=== PATIENT | male | born 1975 | race Caucasian/White ===

== ENCOUNTER 2018-07-05 18:34 | Emergency (ER) | payer MEDICAID ==
[2018-07-05] MEDS ORDERED: Albuterol-Ipratrop 3 mg / 0.5 (3 ml) UD ONE (19:37)
[2018-07-05] MEDS ORDERED: Albuterol-Ipratrop 3 mg / 0.5 (3 ml) UD INH STA ×2 (19:49→21:29)
--- NOTE | 2018-07-05 20:54 | ED PDOC ---
HPI: SOB/CHF/COPD Time Seen by Provider: 07/05/18 19:00 Chief Complaint (Nursing): Shortness Of Breath Chief Complaint (Provider): Shortness of Breath History Per: Patient History/Exam Limitations: no limitations Onset/Duration Of Symptoms: Other (x1 week) Current Symptoms Are (Timing): Still Present Additional Complaint(s): 43 year old male, with a past medical history of asthma, presents to the ED complaining of being of short of breath for 1 week. Patient is also complaining of coughing but denies fever. He states he has an appointment with a doctor at the clinic for this . PMD: none provided Past Medical History Reviewed: Historical Data, Nursing Documentation, Vital Signs Vital Signs: Last Vital Signs Temp 98.4 F 07/05/18 18:43 Pulse 88 07/05/18 18:43 Resp 18 07/05/18 19:20 BP 140/83 07/05/18 18:43 Pulse Ox 96 07/05/18 19:20 - Medical History PMH: Asthma - Surgical History Other surgeries: Arm procedure - Family History Family History: States: Unknown Family Hx - Social History Current smoker - smoking cessation education provided: No Alcohol: None Drugs: Denies - Home Medications Home Medications: Ambulatory Orders Medication Instructions Recorded DiphenhydrAMINE [Benadryl] 25 mg PO TID PRN #12 cap 07/06/16 Ibuprofen [Motrin] 600 mg PO TID PRN #30 tab 07/06/16 Metoclopramide [Reglan] 10 mg PO Q8 #12 tab 07/06/16 RX: traMADol [Ultram] 50 mg PO Q8 PRN #12 tab 07/06/16 Triamcinolone Acetonide [Nasacort 1 spray NS DAILY #1 unit 07/06/16 Allergy 24Hr] RX: Albuterol HFA [Ventolin HFA 90 1 - 2 puff IH Q4H PRN #1 bottle 07/05/18 mcg/actuation (8 g)] - Allergies Allergies/Adverse Reactions: Allergies Allergy/AdvReac Type Severity Reaction Status Date / Time No Known Allergies Allergy Verified 07/05/18 18:43 Wells Criteria for PE - Wells Criteria for Pulmonary Embolism Clinical Signs and Symptoms of DVT: No P.E is #1 Diagnosis, or Equally Likely: No Heart Rate >100: No Immobilization at least 3 days;Surgery previous 4 weeks: No Previous, objectively diagnosed PE or DVT: No Hemoptysis: No Malignancy w/treatment within 6 months, or palliative: No Total Score: 0 Review of Systems ROS Statement: Except As Marked, All Systems Reviewed And Found Negative Constitutional: Negative for: Fever Respiratory: Positive for: Cough, Shortness of Breath Physical Exam - Reviewed Nursing Documentation Reviewed: Yes Vital Signs Reviewed: Yes - Physical Exam Appears: Positive for: Non-toxic, No Acute Distress (pt speaking in full s entences, no tachypnea) Head Exam: Positive for: ATRAUMATIC, NORMOCEPHALIC Skin: Positive for: Normal Color, Warm, Dry Eye Exam: Positive for: Normal appearance ENT: Positive for: Normal ENT Inspection Neck: Positive for: Normal, Painless ROM Cardiovascular/Chest: Positive for: Regular Rate, Rhythm. Negative for: Murmur Respiratory: Positive for: Wheezing, Other (good air entry) Gastrointestinal/Abdominal: Positive for: Soft. Negative for: Tenderness Extremity: Positive for: Normal ROM Neurologic/Psych: Positive for: Alert, Oriented. Negative for: Motor/Sensory Deficits - ECG O2 Sat by Pulse Oximetry: 96 (RA) Pulse Ox Interpretation: Normal Medical Decision Making Medical Decision Making: Initial Impression: shortness of breath- likely asthma exacerbation rule out pneumonia Initial Plan: Chest X-ray Albuterol 3mL INH Prednisone 50mg PO Peak flow Patient's x-ray presents no abnormalities and presents no infiltrate. pt reevaluated after meds, feels much better 02 sat 100 percent RA pt wheezing imrpoved stable for dc and outpt follow up Upon provider reevaluation patient is feeling better, is medically stable, and requires no further treatment in the ED at this time. Patient will be discharged home. Counseling was provided and all questions were answered regarding diagnosis and need for follow up with PMD. There is agreement to discharge plan. Return if symptoms persist or worsen. Scribe Attestation: Documented by Jose Russell acting as a scribe for Jf Baxter MD. Provider Scribe Attestation: All medical record entries made by the Scribe were at my direction and personally dictated by me. I have reviewed the chart and agree that the record accurately reflects my personal performance of the history, physical exam, medical decision making, and the department course for this patient. I have also personally directed, reviewed, and agree with the discharge instructions and disposition. Disposition - Clinical Impression Clinical Impression: Asthma attack - Patient ED Disposition Is Patient to be Admitted: No Counseled Patient/Family Regarding: Studies Performed, Diagnosis, Need For Followup - Disposition Disposition: Routine/Home Disposition Time: 21:55 Condition: IMPROVED Additional Instructions: follow up with your doctor on return to the ED with any worsening or concerning symptoms Prescriptions: RX: Albuterol HFA [Ventolin HFA 90 mcg/actuation (8 g)] 1 - 2 puff IH Q4H PRN #1 bottle PRN Reason: Wheezing Instructions: Asthma, Adult (DC) Forms: [facility] (Malay)
[2018-07-05 22:14] VITALS: BP 129/74; PULSE 84; RESP 19; TEMP 98.3
--- NOTE | 2018-07-06 09:08 | RAD ---
Date of service: 07/05/2018 HISTORY: wheezing COMPARISON: 04/25/2013 TECHNIQUE: Chest PA and lateral FINDINGS: LUNGS: No active pulmonary disease. PLEURA: Asymmetrical elevation and blunting of the right costophrenic angle noted chronic pleural parenchymal pathology here scarring is 1 consideration in addition to mild developmental asymmetry and diaphragmatic height. No interval suspect change perceived. No pneumothorax apparent. CARDIOVASCULAR: No aortic atherosclerotic calcification present Normal heart size OSSEOUS STRUCTURES: No significant abnormalities. VISUALIZED UPPER ABDOMEN: Normal. OTHER FINDINGS: None. IMPRESSION: No active disease. Other findings as above. Comments: Study marked for PA review .
[2018-07-07 10:12] VITALS: O2SAT 96
--- NOTE | 2018-07-27 14:04 | CARD ---
APPROVED REPORT Date of service: 07/05/2018 EKG Measurement Heart [id number] <Conclusion> Normal sinus rhythm Normal Electrocardiogram
== END 2018-07-05 21:57 | disposition home or self-care (01) ==
LOC: H.ER 18:34
DX: J45.909 Unspecified asthma, uncomplicated (principal)

== ENCOUNTER 2018-07-31 09:07 | Emergency (ER) | payer MEDICAID ==
[2018-07-31] MEDS ORDERED: Albuterol-Ipratrop 3 mg / 0.5 (3 ml) UD INH STA ×3 (09:44→11:31)
[2018-07-31] MEDS ORDERED: Albuterol-Ipratrop 3 mg / 0.5 (3 ml) UD ONE ×3 (09:53→11:43)
--- NOTE | 2018-07-31 12:58 | ED PDOC ---
HPI: Influenza Time Seen by Provider: 07/31/18 09:29 Chief Complaint: Cough, Cold, Congestion Chief Complaint (Provider): asthma History Per: Patient Exam Limitations: no limitations Onset/Duration Of Symptoms: Days Additional complaint(s):: Pt. is a 43 y/o Male with h/o asthma who reports cough, wheeze and trouble breathing over past 3d. Pt. ran out of his inhaler at home. Pt. reports asthma exacerbation started about 2-3 weeks ago, was treated with nebs and meds and felt better. Pt. reports he was feeling better until he was helping a friend move, she had a cat and the cough and wheeze returned. Pt. denies fever. Past Medical History Reviewed: Historical Data, Nursing Documentation, Vital Signs Vital Signs: Last Vital Signs Temp 97 F L 07/31/18 09:25 Pulse 81 07/31/18 09:25 Resp 17 07/31/18 09:25 BP Pulse Ox 100 07/31/18 09:25 - Medical History PMH: Asthma - Family History Family History: States: Unknown Family Hx - Home Medications Home Medications: Ambulatory Orders Medication Instructions Recorded DiphenhydrAMINE [Benadryl] 25 mg PO TID PRN #12 cap 07/06/16 Ibuprofen [Motrin] 600 mg PO TID PRN #30 tab 07/06/16 Metoclopramide [Reglan] 10 mg PO Q8 #12 tab 07/06/16 Triamcinolone Acetonide [Nasacort 1 spray NS DAILY #1 unit 07/06/16 Allergy 24Hr] traMADol [Ultram] 50 mg PO Q8 PRN #12 tab 07/06/16 Albuterol HFA [Ventolin HFA 90 1 - 2 puff IH Q4H PRN #1 bottle 07/05/18 mcg/actuation (8 g)] Albuterol HFA [Ventolin HFA 90 2 puff IH [id number] #1 puff 07/31/18 mcg/actuation (8 g)] Montelukast Sodium [Singulair] 10 mg PO DAILY #30 tablet 07/31/18 predniSONE [predniSONE Tab] 50 mg PO DAILY 5 Days #5 tab 07/31/18 - Allergies Allergies/Adverse Reactions: Allergies Allergy/AdvReac Type Severity Reaction Status Date / Time No Known Allergies Allergy Verified 07/05/18 18:43 Review of Systems Constitutional: Negative for: Fever, Chills Cardiovascular: Negative for: Chest Pain Respiratory: Positive for: Cough, Shortness of Breath, Wheezing Physical Exam - Physical Exam Appears: Positive for: Well Head Exam: Positive for: ATRAUMATIC Skin: Positive for: Normal Color Eye Exam: Positive for: Normal appearance ENT: Positive for: Normal ENT Inspection Cardiovascular/Chest: Positive for: Regular Rate, Rhythm. Negative for: Murmur Respiratory: Positive for: Decreased Breath Sounds, Wheezing (bilateral expiratory wheezes) Medical Decision Making Medical Decision Making: Duonebs x 3 given and prednisone po given. CXR ordered and reviewed. Pt. feeling much better, repeat exam, minimal wheeze, pulse ox: 99% on RA, no accessory muscle use, no distress. Peak flow after treatments 275, 300. Stressed importance of close f/u with pt, should avoid allergic triggers, continue with MDI, po steroids. F/u with PMD in next 1-2 days. - ECG O2 Sat by Pulse Oximetry: 100 Disposition - Clinical Impression Clinical Impression: Asthma attack - Patient ED Disposition Is Patient to be Admitted: No - Disposition Referrals: [facility] [Outside] Disposition: Routine/Home Disposition Time: 13:02 Condition: IMPROVED Prescriptions: Albuterol HFA [Ventolin HFA 90 mcg/actuation (8 g)] 2 puff IH [id number] #1 puff Montelukast Sodium [Singulair] 10 mg PO DAILY #30 tablet predniSONE [predniSONE Tab] 50 mg PO DAILY 5 Days #5 tab Instructions: Peak Flow Meter, Asthma, Adult (DC)
[2018-07-31 13:43] VITALS: BP 146/82; PULSE 82; RESP 18; TEMP 98.9; O2SAT 96
--- NOTE | 2018-07-31 14:28 | RAD ---
Date of service: 07/31/2018 HISTORY: cough COMPARISON: Chest radiographs 07/05/2018. TECHNIQUE: Chest PA and lateral FINDINGS: LUNGS: No active pulmonary disease. PLEURA: Trace right pleural effusion blunts the right costophrenic sulcus. No left pleural effusion. No pneumothorax bilaterally. CARDIOVASCULAR: No aortic atherosclerotic calcification present. Normal cardiac size. No pulmonary vascular congestion. OSSEOUS STRUCTURES: No significant abnormalities. VISUALIZED UPPER ABDOMEN: Normal. OTHER FINDINGS: None. IMPRESSION: Trace right pleural effusion. Lung p[place]man otherwise unremarkable bilaterally.
== END 2018-07-31 13:44 | disposition home or self-care (01) ==
LOC: H.ER 09:07
DX: J45.901 Unspecified asthma with (acute) exacerbation (principal)